=== PATIENT | female | born 1945 | race Caucasian/White ===

== ENCOUNTER 2018-11-21 11:42 | Inpatient (IN) ==
[2018-11-21] MEDS ORDERED: *HR* OxyCODONE Immed Rel 5 MG TABLET PO PRN (19:34)
[2018-11-21] MEDS ORDERED: Acetaminophen 325 MG TABLET PO PRN (19:42)
[2018-11-21] MEDS ORDERED: Ondansetron ODT 4 MG TAB.RAPDIS SL PRN (19:42)
[2018-11-21] MEDS ORDERED: Mag Hydrox/Al Hydrox/Simeth 30 ML UDC PO PRN (19:42)
[2018-11-21] MEDS: Metoprolol 100 MG TABLET PO SCH (20:11)
[2018-11-21] MEDS: Aspirin Enteric Coated 325 MG Tablet PO SCH (20:11)
[2018-11-21] MEDS: Multivit/Ca/Min/Fe/FA 1 TAB TABLET PO SCH (20:11)
[2018-11-21] MEDS ORDERED: Aspirin 81 MG TAB.CHEW PO SCH (21:00)
[2018-11-21] MEDS: *HR* OxyCODONE Immed Rel 5 MG TABLET PO PRN (22:51)
[2018-11-22] MEDS: *HR* OxyCODONE Immed Rel 5 MG TABLET PO PRN ×2 (05:32→20:03)
[2018-11-22 06:17] LABS: Basophils % 0.4 %; Eosinophils # 0.5 K/mcL (0.0-0.6); Hematocrit 28.9 % (35.3-44.9); Hemoglobin 9.4 g/dL (11.5-15.4); Immature Granulocytes % 0.4 % (0-4); Lymphocytes # 2.5 K/mcL (0.6-4.6); Lymphocytes % 27.7 %; Mean Corpuscular HGB Conc 32.5 g/dL (31.6-35.5); Mean Corpuscular Hemoglobin 30.7 pg (28.0-33.3); Mean Corpuscular Volume 94.4 fL (83.0-100.0); Mean Platelet Volume 11.5 fL (9.4-12.4); Monocytes # 1.1 K/mcL (0.0-1.3); Monocytes % 11.9 %; Neutrophils # 4.8 K/mcL (1.6-8.9); Platelet Count 246 K/mcL (140-400); Red Blood Count 3.06 M/mcL (3.82-4.97); Red Cell Distribution Width 13.7 % (11.5-14.5); Segmented Neutrophils % 53.6 %
[2018-11-22 06:26] LABS: Prothrombin Time 11.8 Seconds (9.4-12.1)
[2018-11-22 06:29] LABS: Activated Partial Thrombo Time 37.3 Seconds (26.0-36.0)
[2018-11-22 06:37] LABS: Alanine Aminotransferase 15 Units/L (7-52); Albumin 3.9 g/dL (3.5-5.7); Albumin/Globulin Ratio 1.5 (1.1-2.2); Alkaline Phosphatase 41 Units/L (34-104); Aspartate Amino Transferase 24 Units/L (13-39); BUN/Creatinine Ratio 16 (6-26); Bilirubin,Total 0.3 mg/dL (0.3-1.0); Blood Urea Nitrogen 12 mg/dL (8-23); Calcium 9.3 mg/dL (8.6-10.3); Carbon Dioxide 28 mEq/L (23-29); Chloride 104 mEq/L (98-107); Globulin 2.6 g/dL (2.4-3.5); Glucose 134 mg/dL (70-105); Osmolality,Calculated 288 (280-300); Potassium 4.3 mEq/L (3.5-5.1); Sodium 138 mEq/L (136-145); Total Protein 6.5 g/dL (6.4-8.9); eGFR For African Americans > 60 (> 60); eGFR For Non-African Americans > 60 (> 60)
[2018-11-22] MEDS: Fenofibrate 54 MG TABLET PO SCH (07:37)
[2018-11-22] MEDS: *HR* Metformin 500 MG TABLET PO SCH ×2 (07:38→17:04)
[2018-11-22] MEDS: Cholecalciferol (D-3) 1,000 UNIT (25MCG) TABLET PO SCH (07:38)
[2018-11-22] MEDS: Metoprolol 100 MG TABLET PO SCH ×2 (07:38→20:02)
[2018-11-22] MEDS: Multivit/Ca/Min/Fe/FA 1 TAB TABLET PO SCH ×2 (07:38→20:02)
[2018-11-22] MEDS: Aspirin Enteric Coated 325 MG Tablet PO SCH ×2 (07:38→20:02)
--- NOTE | 2018-11-22 11:49 | Internal Med History&Physical ---
Date of Encounter: 11/22/18 Time of Encounter: 11:47 Assessment and Plan (1) Status post total right knee replacement Current visit: Yes Status: Acute Pain controlled with current medication. PT and OT to eval and treat. Follow up with Dr. Ibarra as scheduled. (2) HTN (hypertension) Current visit: Yes Status: Chronic Controlled with current medication. Monitor blood pressure. Qualifiers: Hypertension type: unspecified Qualified Code(s): I10 - Essential (primary) hypertension (3) Hypothyroidism Current visit: Yes Status: Chronic Continue current medication. Qualifiers: Hypothyroidism type: unspecified Qualified Code(s): E03.9 - Hypothyroidism, unspecified (4) Obesity (BMI 30.0-34.9) Current visit: Yes Status: Chronic (5) Diabetes Current visit: Yes Status: Chronic Controlled with metformin. Monitor fingerstick blood sugars. Qualifiers: Diabetes mellitus type: type 2 Diabetes mellitus watermaster insulin use: unspecified chcf insulin use status Chronic kidney disease stage: unspecified stage Qualified Code(s): E11.22 - Type 2 diabetes mellitus with diabetic chronic kidney disease (6) Anxiety Current visit: Yes Status: Chronic Controlled with Xanax. Internal Medicine - H&P: HPI Admitted From: Hospital to Hospital Transfer Plans for Post Hospital Care: Home History of present illness: Ms. Bobo is a 73 year old female admitted to inpatient rehab status post r ight total knee replacement. Patient lives at home with with multiple levels of stairs in their homes. Patient had surgery on performed by Dr. Ibarra. Patient states pain is controlled with current medication this time. Denies fever, chills, nausea vomiting or diarrhea. Did have a bowel movement 2 days ago. Discussed stool softener. Maintaining appetite and hydration. at bedside at this time. Past medical history includes asthma, Gerd, hypertension, diverticulosis, anxiety, allergic rhinitis, hypothyroidism, hyperlipidemia, obesity, right knee arthritis, left knee arthritis with left total knee repair in 2014. Past Med Surg Social Fam HX - Past Medical History Medical history: asthma, diabetes, GERD, hyperlipidemia, hypertension, thyroid disease Additional medical history: Diverticulosis. Allergic Rhinitis. Hypothyroidism. Obesity. Left knee osteoathritis. Mod Dysplastic nervus. Artificial Joints. Right Knee Arthritis Psychiatric history: anxiety - Past Surgical History Surgical History: appendectomy, hysterectomy, orthopedic, other Additional surgical history: Knee Repair. Colonoscopy. Diverticulosis. Tubal Ligation. TKR. Right Knee Arthroscopy Partial Medial. Menisectomy. EGD - Social History Smoking Status: Former smoker Smokeless Tobacco Status: No Alcohol use: none Drug use: none - Family History Mother Living Status: Hx Family Cancer: Yes (throat) Father Living Status: Sister Age: 68 Family Member Ethnicity: Non- Living Status: Still Living Hx Family Cardiac Disorders: Yes Hx Family Endocrine Disorder: Yes (DM) Internal Medicine - H&P: Meds ALPRAZolam [Xanax 0.5 MG Tablet] 0.5 mg PO TID PRN 08/07/17 [History] Aspirin 81 mg PO HS 08/07/17 [History] Metoprolol Tartrate 100 mg PO BID 08/07/17 [History] Montelukast [Singulair] 10 mg PO HS 08/07/17 [History] Fenofibrate Nanocrystallized [Fenofibrate] 145 mg PO DAILY 03/27/18 [History] Rabeprazole Sodium [Aciphex] 20 mg PO DAILY 03/27/18 [History] metFORMIN [Glucophage] 500 mg PO BIDWM 03/27/18 [History] Aspirin Enteric Coated [Aspirin EC] 325 mg PO BID 10 Days #20 tablet. 11/19/18 [Rx] Calcium Carbonate/Vitamin D3 [Calcium 500 + Vit D Caplet] 1 tab PO BID 11/19/18 [History] Cholecalciferol (D-3) [Vitamin D] 2,000 unit PO DAILY 11/19/18 [History] Docusate Sodium [Colace] 100 mg PO BID 5 Days #10 capsule 11/19/18 [Rx] Losartan Potassium 25 mg PO DAILY 11/19/18 [History] Multivitamin [One Daily] 1 tab PO BID 11/19/18 [History] OxyCODONE Immed Rel [Roxicodone 5 MG] 5 mg PO Q6HR PRN 5 Days #20 tablet 11/19/18 [Rx] Potassium Chloride 10 meq PO HS 11/19/18 [History] Rosuvastatin Calcium [Crestor] 10 mg PO DAILY 11/19/18 [History] Cyclobenzaprine [Flexeril] 5 mg PO TID PRN tablet 11/21/18 [Rx] Levothyroxine [Synthroid] 112 mcg PO DAILY 11/21/18 [History] Allergy/AdvReac Type Severity Reaction Status Date / Time Benzonatate Allergy Swelling Verified 11/19/18 10:42 [From Teslenin Wright] of the Eye hydrochlorothiazide Allergy Swelling Verified 11/19/18 10:42 of the Eye atorvastatin [From Lipitor] AdvReac Flushing Verified 11/19/18 10:42 ezetimibe [From Zetia] AdvReac Itching Verified 11/19/18 10:42 All Systems PM: A 10-system review of systems was performed and is negative for pertinent findings except as documented above in the HPI. - Constitutional Vitals: Temp Pulse Resp BP Pulse Ox 98.7 F 92 16 131/79 96 11/22/18 11:00 11/22/18 11:00 11/22/18 11:00 11/22/18 11:00 11/22/18 11:00 General appearance: Present: cooperative, A&O X 3, pleasant, no acute distress, answers questions appropriately - Head Head exam: Present: atraumatic, normocephalic - Eye Eye exam: Present: PERRL, conjuntiva pink, sclera anicteric Pupils: Present: PERRL - Neck Neck exam general surgery: Present: supple, trachea midline. Absent: lymphadenopathy - Respiratory Respiratory exam: Present: CTAB. Absent: accessory muscle use, rales, rhonchi, wheezes - Cardiovascular Cardiovascular exam: Present: RRR, +S1, +S2. Absent: diastolic murmur, gallop, rubs, systolic murmur - GI/Abdominal GI/Abdominal exam: Present: normal bowel sounds, soft, no peritoneal signs. Absent: distended, tenderness - Extremities Exam Extremities exam: Present: warm, radial pulses palpable and symmetrical. Absent : calf tenderness, cyanotic, pedal edema - Incison Comments: Right knee incision dressing dry and intact with surrounding edema. No drainage or sign of infection. - Neurological Exam Neurological exam: Present: CN II-XII intact, oriented X3, no focal deficits. Absent: pronater drift, facial droop, speech deficit - Skin Skin exam: Present: dry, intact Internal Med - H&P Results - Labs CBC & Chem 7: 11/22/18 05:25 11/22/18 05:25 Labs: Short CBC 11/22/18 Range/Units 05:25 WBC 9.0 (4.3-11.1) K/mcL Hgb 9.4 L (11.5-15.4) g/dL Hct 28.9 L (35.3-44.9) % Plt Count 246 (140-400) K/mcL Neutrophils # 4.8 (1.6-8.9) K/mcL BMP 11/22/18 05:25 Sodium 138 Potassium 4.3 Chloride 104 Carbon Dioxide 28 BUN 12 Creatinine 0.76 Glucose 134 H Calcium 9.3 Liver Function 11/22/18 Range/Units 05:25 Total Bilirubin 0.3 (0.3-1.0) mg/dL AST 24 (13-39) Units/L ALT 15 (7-52) Units/L Alkaline Phosphatase 41 (34-104) Units/L Albumin 3.9 (3.5-5.7) g/dL
[2018-11-22] MEDS: ALPRAZolam 0.5 MG TABLET PO PRN (20:01)
[2018-11-23] MEDS: *HR* OxyCODONE Immed Rel 5 MG TABLET PO PRN ×3 (02:50→17:33)
[2018-11-23 05:02] LABS: Basophils # 0.1 K/mcL (0.0-0.2); Basophils % 0.7 %; Eosinophils # 0.5 K/mcL (0.0-0.6); Eosinophils % 5.9 %; Hematocrit 27.9 % (35.3-44.9); Hemoglobin 9.1 g/dL (11.5-15.4); Immature Granulocytes % 0.4 % (0-4); Lymphocytes # 2.4 K/mcL (0.6-4.6); Lymphocytes % 27.6 %; Mean Corpuscular HGB Conc 32.6 g/dL (31.6-35.5); Mean Corpuscular Hemoglobin 30.8 pg (28.0-33.3); Mean Corpuscular Volume 94.6 fL (83.0-100.0); Monocytes % 11.2 %; Neutrophils # 4.6 K/mcL (1.6-8.9); Platelet Count 232 K/mcL (140-400); Red Blood Count 2.95 M/mcL (3.82-4.97); Red Cell Distribution Width 13.7 % (11.5-14.5); Segmented Neutrophils % 54.2 %; White Blood Count 8.5 K/mcL (4.3-11.1)
[2018-11-23 05:17] LABS: BUN/Creatinine Ratio 13 (6-26); Blood Urea Nitrogen 10 mg/dL (8-23); Carbon Dioxide 28 mEq/L (23-29); Chloride 103 mEq/L (98-107); Glucose 137 mg/dL (70-105); Osmolality,Calculated 285 (280-300); Potassium 4.3 mEq/L (3.5-5.1); Sodium 137 mEq/L (136-145); eGFR For African Americans > 60 (> 60); eGFR For Non-African Americans > 60 (> 60)
[2018-11-23] MEDS: Cholecalciferol (D-3) 1,000 UNIT (25MCG) TABLET PO SCH (08:00)
[2018-11-23] MEDS: *HR* Metformin 500 MG TABLET PO SCH ×2 (08:00→17:31)
[2018-11-23] MEDS: Fenofibrate 54 MG TABLET PO SCH (08:00)
[2018-11-23] MEDS: Multivit/Ca/Min/Fe/FA 1 TAB TABLET PO SCH ×2 (08:01→21:16)
[2018-11-23] MEDS: Metoprolol 100 MG TABLET PO SCH ×2 (08:01→21:16)
[2018-11-23] MEDS: Aspirin Enteric Coated 325 MG Tablet PO SCH ×2 (08:01→21:16)
--- NOTE | 2018-11-23 10:47 | Internal Med Progress Note ---
Date of Encounter: 11/23/18 Time of Encounter: 10:45 - Assessment and plan (1) Status post total right knee replacement Current Visit: Yes Status: Acute Assessment and plan: No acute issues. Patient's complaining of moderate pain to right knee during therapy which she states is tolerable with current medications. Patient with moderate amount of edema and ecchymosis surrounding right knee midline surgical incision, which has dressing that is dry and intact. We will continue with current therapy. We will continue with icing of knee while in bed. (2) Diabetes Current Visit: Yes Status: Chronic Assessment and plan: No acute issues. Patient's fingerstick showed glucose well-controlled with most readings less than 150. We will continue with current medications. Qualifiers: Diabetes mellitus type: type 2 Diabetes mellitus senior living insulin use: unspecified termite exterminator helper insulin use status Chronic kidney disease stage: unspecified stage Qualified Code(s): E11.22 - Type 2 diabetes mellitus with diabetic chronic kidney disease (3) HTN (hypertension) Current Visit: Yes Status: Chronic Assessment and plan: No acute issues. Vital signs remained stable. We will continue with current medications. Qualifiers: Hypertension type: unspecified Qualified Code(s): I10 - Essential (primary) hypertension (4) Asthma Current Visit: No Status: Chronic Assessment and plan: No acute issues. Lungs are clear throughout. Continue with current medications. Denies any dyspnea or productive cough Qualifiers: Asthma severity: unspecified severity Asthma persistence: unspecified Asthma complication type: unspecified Qualified Code(s): J45.909 - Unspecified asthma, uncomplicated - Time Spent With Patient less than 15 minutes - Subjective Interval history: Patient appears relaxed but states she continues to have slight tenderness to her right surgical knee, which she states is at a 4/10 level of pain. Patient states that her pain is tolerable with current medications. Patient has had a right total knee replacement. Patient states that therapy is progressing well for her and denies any other issues. - Constitutional Vitals: Temp Pulse Resp BP Pulse Ox 98.4 F 100 18 129/92 93 11/23/18 07:05 11/23/18 07:05 11/23/18 07:05 11/23/18 07:05 11/23/18 07:05 General appearance: Present: cooperative, A&O X 3, pleasant, no acute distress, answers questions appropriately - Head Head exam: Present: atraumatic, normocephalic - Eye Eye exam: Present: PERRL, conjuntiva pink, sclera anicteric Pupils: Present: PERRL - Neck Neck exam general surgery: Present: supple, trachea midline. Absent: lymphadenopathy - Respiratory Respiratory exam: Present: CTAB. Absent: accessory muscle use, rales, rhonchi, wheezes - Cardiovascular Cardiovascular exam: Present: RRR, +S1, +S2. Absent: diastolic murmur, gallop, rubs, systolic murmur - GI/Abdominal GI/Abdominal exam: Present: normal bowel sounds, soft, no peritoneal signs. Absent: distended, tenderness - Extremities Exam Extremities exam: Present: warm, radial pulses palpable and symmetrical. Absent: calf tenderness, cyanotic, pedal edema Additional comments: Right knee with midline incision that appears dry and intact with dressing. Patient with moderate amount of ecchymosis noted surrounding knee which also remains moderately swollen. No erythema noted. No limits to range of motion noted. - Neurological Exam Neurological exam: Present: CN II-XII intact, oriented X3, no focal deficits. Absent: pronater drift, facial droop, speech deficit - Skin Skin exam: Present: dry, intact Internal Medicine: Result - Labs CBC & Chem 7: 11/23/18 04:45 11/23/18 04:45 Labs: Short CBC 11/23/18 Range/Units 04:45 WBC 8.5 (4.3-11.1) K/mcL Hgb 9.1 L (11.5-15.4) g/dL Hct 27.9 L (35.3-44.9) % Plt Count 232 (140-400) K/mcL Neutrophils # 4.6 (1.6-8.9) K/mcL BMP 11/23/18 04:45 Sodium 137 Potassium 4.3 Chloride 103 Carbon Dioxide 28 BUN 10 Creatinine 0.79 Glucose 137 H Calcium 9.0 - ABG Interpretation ABG results: PT/INR, D-dimer PT 11.8 Seconds (9.4-12.1) 11/22/18 05:25 Consult Discharge Plan - Plan Referrals: Darrel Ozuna MD [Primary Care Provider] -
[2018-11-24] MEDS: *HR* OxyCODONE Immed Rel 5 MG TABLET PO PRN ×3 (06:32→19:59)
[2018-11-24] MEDS: Metoprolol 100 MG TABLET PO SCH ×2 (09:17→19:56)
[2018-11-24] MEDS: Fenofibrate 54 MG TABLET PO SCH (09:18)
[2018-11-24] MEDS: *HR* Metformin 500 MG TABLET PO SCH ×2 (09:19→17:17)
[2018-11-24] MEDS: Aspirin Enteric Coated 325 MG Tablet PO SCH ×2 (09:19→19:56)
[2018-11-24] MEDS: Cholecalciferol (D-3) 1,000 UNIT (25MCG) TABLET PO SCH (09:20)
[2018-11-24] MEDS: Multivit/Ca/Min/Fe/FA 1 TAB TABLET PO SCH ×2 (09:20→19:59)
--- NOTE | 2018-11-24 11:00 | Internal Med Progress Note ---
Date of Encounter: 11/24/18 Time of Encounter: 10:57 - Assessment and plan (1) Status post total right knee replacement Current Visit: Yes Status: Acute Assessment and plan: She is doing well, stable and participating in therapy. (2) HTN (hypertension) Current Visit: Yes Status: Chronic Assessment and plan: Controlled on current regimen. Qualifiers: Hypertension type: unspecified Qualified Code(s): I10 - Essential (primary) hypertension (3) Diabetes Current Visit: Yes Status: Chronic Assessment and plan: We will continue current regimen and sliding scale. Qualifiers: Diabetes mellitus type: type 2 Diabetes mellitus intermodal customer service insulin use: unspecified intermodal customer service insulin use status Chronic kidney disease stage: unspecified stage Qualified Code(s): E11.22 - Type 2 diabetes mellitus with diabetic chronic kidney disease (4) Asthma Current Visit: No Status: Chronic Assessment and plan: No current signs or symptoms. Qualifiers: Asthma severity: unspecified severity Asthma persistence: unspecified Asthma complication type: unspecified Qualified Code(s): J45.909 - Unspecified asthma, uncomplicated (5) Acute blood loss anemia Current Visit: No Status: Acute Assessment and plan: Stable and well tolerated although she has mild tachycardia. Will follow. (6) Hypothyroidism Current Visit: Yes Status: Chronic Assessment and plan: Clinically euthyroid. Qualifiers: Hypothyroidism type: unspecified Qualified Code(s): E03.9 - Hypothyroidism, unspecified - Subjective Interval history: Patient is without complaint. She states slept poorly last night but is feeling rested after a brief time in bed. Her knee pain is improving. She still has not had a bowel movement and has been taking laxatives and prune juice. We discussed the use of magnesium citrate, this evening, if no bowel movement by then. Patient has no complaint of chest discomfort, dyspnea, orthopnea, palpitations, nausea or vomiting, constipation or diarrhea, other changes in bowel habits, di fficulty with urination, rash or itching, or other new complaints, except as mentioned above. Review of systems is otherwise negative. I discussed management of patient's care with nursing staff. - Constitutional Vitals: Temp Pulse Resp BP Pulse Ox 98.4 F 104 18 121/73 97 11/24/18 08:00 11/24/18 08:00 11/24/18 08:00 11/24/18 08:00 11/24/18 08:00 Exam: Examination: (Except as mentioned above): General: In no apparent distress. Alert and oriented 3. Nondiaphoretic. Head: Atraumatic and normocephalic. Respiratory: No use of accessory muscles. Lungs are clear throughout. Normal airflow. Cardiovascular: Regular rate and rhythm without murmur appreciated. Abdomen: Bowel sounds are normal. No hepatosplenomegaly mass or tenderness appreciated. Obese and therefore difficult to palpate deeply. Extremities: No cyanosis clubbing or edema. Skin: Warm and non-diaphoretic with no new lesions noted. Internal Medicine: Result - Labs CBC & Chem 7: 11/23/18 04:45 11/23/18 04:45 - ABG Interpretation ABG results: PT/INR, D-dimer PT 11.8 Seconds (9.4-12.1) 11/22/18 05:25 Consult Discharge Plan - Plan Referrals: Darrel Ozuna MD [Primary Care Provider] -
[2018-11-24] MEDS: Sennosides 8.6 MG TABLET PO SCH (19:58)
[2018-11-25] MEDS: *HR* OxyCODONE Immed Rel 5 MG TABLET PO PRN ×3 (05:33→21:05)
[2018-11-25] MEDS: Fenofibrate 54 MG TABLET PO SCH (08:31)
[2018-11-25] MEDS: Sennosides 8.6 MG TABLET PO SCH ×2 (08:32→21:05)
[2018-11-25] MEDS: Metoprolol 100 MG TABLET PO SCH ×2 (08:32→21:05)
[2018-11-25] MEDS: Cholecalciferol (D-3) 1,000 UNIT (25MCG) TABLET PO SCH (08:32)
[2018-11-25] MEDS: Multivit/Ca/Min/Fe/FA 1 TAB TABLET PO SCH ×2 (08:32→21:04)
[2018-11-25] MEDS: *HR* Metformin 500 MG TABLET PO SCH ×2 (08:32→16:36)
[2018-11-25] MEDS: Aspirin Enteric Coated 325 MG Tablet PO SCH (08:32)
--- NOTE | 2018-11-25 15:58 | Internal Med Progress Note ---
Date of Encounter: 11/25/18 Time of Encounter: 15:56 - Assessment and plan (1) Status post total right knee replacement Current Visit: Yes Status: Acute Assessment and plan: She is doing well, stable and participating in therapy. See comments under subjective regarding DVT prophylaxis change. (2) HTN (hypertension) Current Visit: Yes Status: Chronic Assessment and plan: Controlled. Qualifiers: Hypertension type: unspecified Qualified Code(s): I10 - Essential (primary) hypertension (3) Diabetes Current Visit: Yes Status: Chronic Assessment and plan: Adequate control. We will continue sliding scale and current regimen. Qualifiers: Diabetes mellitus type: type 2 Diabetes mellitus terminal carman insulin use: unspecified terminal carman insulin use status Chronic kidney disease stage: unspecified stage Qualified Code(s): E11.22 - Type 2 diabetes mellitus with diabetic chronic kidney disease (4) Asthma Current Visit: No Status: Chronic Assessment and plan: No current findings. Qualifiers: Asthma severity: unspecified severity Asthma persistence: unspecified Asthma complication type: unspecified Qualified Code(s): J45.909 - Unspecified asthma, uncomplicated (5) Acute blood loss anemia Current Visit: No Status: Acute Assessment and plan: Stable but will recheck blood tomorrow. (6) Hypothyroidism Current Visit: Yes Status: Chronic Assessment and plan: Clinically euthyroid. Qualifiers: Hypothyroidism type: unspecified Qualified Code(s): E03.9 - Hypothyroidism, unspecified - Subjective Interval history: Patient is without complaint. On specific questioning, she admits to dyspepsia and feels this is related to her aspirin. She prefer "shots" to the aspirin. We discussed this and will begin Lovenox, as a day. Aspirin will be discontinued. She had a bowel movement but still feels slightly constipated. Patient has no complaint of chest discomfort, dyspnea, orthopnea, palpitations, nausea or vomiting, constipation or diarrhea, other changes in bowel habits, difficulty with urination, rash or itching, or other new complaints, except as mentioned above. Review of systems is otherwise negative. I discussed management of patient's care with nursing staff. - Constitutional Vitals: Temp Pulse Resp BP Pulse Ox 97.7 F 105 18 136/65 95 11/25/18 07:25 11/25/18 07:25 11/25/18 07:25 11/25/18 07:25 11/25/18 07:25 Exam: Examination: (Except as mentioned above): General: In no apparent distress. Alert and oriented 3. Nondiaphoretic. Head: Atraumatic and normocephalic. Respiratory: No use of accessory muscles. Lungs are clear throughout. Normal airflow. Cardiovascular: Regular rate and rhythm without murmur appreciated. Abdomen: Bowel sounds are normal. No hepatosplenomegaly mass or tenderness appreciated. Obese and therefore difficult to palpate deeply. Extremities: No cyanosis clubbing or edema. Skin: Warm and non-diaphoretic with no new lesions noted. Internal Medicine: Result - Labs CBC & Chem 7: 11/23/18 04:45 11/23/18 04:45 - ABG Interpretation ABG results: PT/INR, D-dimer PT 11.8 Seconds (9.4-12.1) 11/22/18 05:25 Consult Discharge Plan - Plan Referrals: Darrel Ozuna MD [Primary Care Provider] -
[2018-11-25] MEDS ORDERED: *HR* Enoxaparin 40 MG/0.4 ML SYRINGE SQ SCH (16:30)
[2018-11-25] MEDS: ALPRAZolam 0.5 MG TABLET PO PRN (21:04)
[2018-11-26] MEDS: *HR* OxyCODONE Immed Rel 5 MG TABLET PO PRN ×2 (05:36→10:27)
[2018-11-26 06:47] LABS: Basophils % 0.5 %; Eosinophils # 0.4 K/mcL (0.0-0.6); Eosinophils % 6.8 %; Hematocrit 27.5 % (35.3-44.9); Hemoglobin 9.1 g/dL (11.5-15.4); Immature Granulocytes % 0.3 % (0-4); Lymphocytes % 31.1 %; Mean Corpuscular HGB Conc 33.1 g/dL (31.6-35.5); Mean Corpuscular Hemoglobin 31.8 pg (28.0-33.3); Mean Corpuscular Volume 96.2 fL (83.0-100.0); Mean Platelet Volume 10.4 fL (9.4-12.4); Monocytes # 0.9 K/mcL (0.0-1.3); Monocytes % 13.9 %; Neutrophils # 3.1 K/mcL (1.6-8.9); Platelet Count 331 K/mcL (140-400); Red Blood Count 2.86 M/mcL (3.82-4.97); Red Cell Distribution Width 13.6 % (11.5-14.5); Segmented Neutrophils % 47.4 %; White Blood Count 6.5 K/mcL (4.3-11.1)
[2018-11-26 06:55] VITALS: BP 98/66
[2018-11-26 07:05] LABS: BUN/Creatinine Ratio 16 (6-26); Blood Urea Nitrogen 13 mg/dL (8-23); Calcium 8.9 mg/dL (8.6-10.3); Carbon Dioxide 28 mEq/L (23-29); Chloride 99 mEq/L (98-107); Glucose 124 mg/dL (70-105); Osmolality,Calculated 278 (280-300); Potassium 4.3 mEq/L (3.5-5.1); Sodium 133 mEq/L (136-145); eGFR For African Americans > 60 (> 60); eGFR For Non-African Americans > 60 (> 60)
[2018-11-26] MEDS: *HR* Metformin 500 MG TABLET PO SCH (08:52)
[2018-11-26] MEDS: Fenofibrate 54 MG TABLET PO SCH (08:52)
[2018-11-26] MEDS: Sennosides 8.6 MG TABLET PO SCH (08:52)
[2018-11-26] MEDS: Metoprolol 100 MG TABLET PO SCH (08:52)
[2018-11-26] MEDS: Cholecalciferol (D-3) 1,000 UNIT (25MCG) TABLET PO SCH (08:52)
[2018-11-26] MEDS: Multivit/Ca/Min/Fe/FA 1 TAB TABLET PO SCH (08:52)
--- NOTE | 2018-11-26 09:41 | Discharge Summary ---
Date of Encounter: 11/26/18 Time of Encounter: 09:39 - Discharge Diagnosis (1) Status post total right knee replacement Priority: Primary Status: Acute Comments: Goals completed with PT and OT. Discharging to home. Able to ambulate by self with Walker and climb stairs. Pain controlled with current medication. Follow up with surgeon as scheduled. (2) HTN (hypertension) Priority: Secondary Status: Chronic Comments: Controlled with current medication. Monitor BP. Follow up with PCP. Qualifiers: Hypertension type: unspecified Qualified Code(s): I10 - Essential (primary) hypertension (3) Hypothyroidism Priority: Secondary Status: Chronic Comments: Continue current medication. Follow up with PCP. Qualifiers: Hypothyroidism type: unspecified Qualified Code(s): E03.9 - Hypothyroidism, unspecified (4) Obesity (BMI 30.0-34.9) Priority: Secondary Status: Chronic Comments: Monitor diet. (5) Diabetes Priority: Secondary Status: Chronic Comments: Controlled with current medication. Follow up with PCP. Qualifiers: Diabetes mellitus type: type 2 Diabetes mellitus skilled nursing insulin use: unspecified skilled nursing insulin use status Chronic kidney disease stage: unspecified stage Qualified Code(s): E11.22 - Type 2 diabetes mellitus with diabetic chronic kidney disease (6) Anxiety Priority: Secondary Status: Chronic Comments: sTable. Continue current medication. Follow up with PCP. Hospital course: Ms. Bobo is a 73 year old female discharging to home with status post right total knee replacement. Patient completed PT and OT goals. Ambulates with Walker independently. Patient states pain is controlled with current medication. Instructed to follow up with PCP within one to 2 weeks and surgeon as scheduled. Patient denies any complaints or concerns. Denies fever, chills, nausea vomiting or diarrhea. Denies shortness of breath or chest pain. Last bowel movement was yesterday. Discharge discussed with: patient, family, nurse, social work - Time Spent with Patient Total time spent providing and/or coordinating discharge services: - Discharge Medications Prescriptions: No Action Montelukast [Singulair] 10 mg PO HS ALPRAZolam [Xanax 0.5 MG Tablet] 0.5 mg PO TID PRN PRN Reason: Anxiety Metoprolol Tartrate 100 mg PO BID Aspirin 81 mg PO HS metFORMIN [Glucophage] 500 mg PO BIDWM Rabeprazole Sodium [Aciphex] 20 mg PO DAILY Fenofibrate Nanocrystallized [Fenofibrate] 145 mg PO DAILY Docusate Sodium [Colace] 100 mg PO BID 5 Days #10 capsule OxyCODONE Immed Rel [Roxicodone 5 MG] 5 mg PO Q6HR PRN 5 Days #20 tablet PRN Reason: Severe Pain Aspirin Enteric Coated [Aspirin EC] 325 mg PO BID 10 Days #20 tablet. Calcium Carbonate/Vitamin D3 [Calcium 500 + Vit D Caplet] 1 tab PO BID Cholecalciferol (D-3) [Vitamin D] 2,000 unit PO DAILY Losartan Potassium 25 mg PO DAILY Multivitamin [One Daily] 1 tab PO BID Potassium Chloride 10 meq PO HS Rosuvastatin Calcium [Crestor] 10 mg PO DAILY Levothyroxine [Synthroid] 112 mcg PO DAILY Cyclobenzaprine [Flexeril] 5 mg PO TID PRN tablet PRN Reason: MUSCLE SPASM Home Medications: ALPRAZolam [Xanax 0.5 MG Tablet] 0.5 mg PO TID PRN 08/07/17 [History] Metoprolol Tartrate 100 mg PO BID 08/07/17 [History] Montelukast [Singulair] 10 mg PO HS 08/07/17 [History] Fenofibrate Nanocrystallized [Fenofibrate] 145 mg PO DAILY 03/27/18 [History] Rabeprazole Sodium [Aciphex] 20 mg PO DAILY 03/27/18 [History] metFORMIN [Glucophage] 500 mg PO BIDWM 03/27/18 [History] Aspirin Enteric Coated [Aspirin EC] 325 mg PO BID 10 Days #20 tablet. 11/19/18 [Rx] Calcium Carbonate/Vitamin D3 [Calcium 500 + Vit D Caplet] 1 tab PO BID 11/19/18 [History] Cholecalciferol (D-3) [Vitamin D] 2,000 unit PO DAILY 11/19/18 [History] Docusate Sodium [Colace] 100 mg PO BID 5 Days #10 capsule 11/19/18 [Rx] Losartan Potassium 25 mg PO DAILY 11/19/18 [History] Multivitamin [One Daily] 1 tab PO BID 11/19/18 [History] OxyCODONE Immed Rel [Roxicodone 5 MG] 5 mg PO Q6HR PRN 5 Days #20 tablet 11/19/18 [Rx] Potassium Chloride 10 meq PO HS 11/19/18 [History] Rosuvastatin Calcium [Crestor] 10 mg PO DAILY 11/19/18 [History] Cyclobenzaprine [Flexeril] 5 mg PO TID PRN tablet 11/21/18 [Rx] Levothyroxine [Synthroid] 112 mcg PO DAILY 11/21/18 [History] Acetaminophen [Tylenol] 650 mg PO Q6HR PRN tablet 11/26/18 [Rx] Allergies/Adverse Reactions: Allergy/AdvReac Type Severity Reaction Status Date / Time Benzonatate Allergy Swelling Verified 11/19/18 10:42 [From Tessalkatie Wright] of the Eye hydrochlorothiazide Allergy Swelling Verified 11/19/18 10:42 of the Eye atorvastatin [From Lipitor] AdvReac Flushing Verified 11/19/18 10:42 ezetimibe [From Zetia] AdvReac Itching Verified 11/19/18 10:42 Date of admission: 11/21/18 17:34 Primary care physician: Darrel Ozuna MD Consults: 11/21/18 19:37 Consult to Occupational Therapy [CONS] Routine Comment: Evaluate, develop and implement POC Reason for Consult: s/p knee replacement Does patient have active BEDREST order?: No Is patient medically & hemodynamically stable?: Yes Patient assessed for mobility or mobilized this visit?: No Consult to Physical Therapy [CONS] Routine Comment: Evaluate, develop and implement POC Reason for Consult: s/p knee replacement, per orders, focus on extension Does patient have active BEDREST order?: No Is patient medically & hemodynamically stable?: Yes Patient assessed for mobility or mobilized this visit?: No Consult to Recreational Therapy [CONS] Routine Comment: Evaluate, develop and implement POC Consult to Manager Baby [CONS] Routine Reason for SW Consult: d/c planning Discharging clinician: Dorian Retana Anticipated date of discharge: 11/26/18 - Constitutional Vitals: Temp Pulse Resp BP Pulse Ox 97.9 F 100 18 98/66 95 11/26/18 06:54 11/26/18 06:54 11/26/18 06:54 11/26/18 06:54 11/26/18 06:54 General appearance: Present: cooperative, A&O X 3, pleasant, no acute distress, answers questions appropriately - Head Head exam: Present: atraumatic, normocephalic - Eye Eye exam: Present: PERRL, conjuntiva pink, sclera anicteric Pupils: Present: PERRL - Neck Neck exam general surgery: Present: supple, trachea midline. Absent: lymphadenopathy - Respiratory Respiratory exam: Present: CTAB. Absent: accessory muscle use, rales, rhonchi, wheezes - Cardiovascular Cardiovascular exam: Present: RRR, +S1, +S2. Absent: diastolic murmur, gallop, rubs, systolic murmur - GI/Abdominal GI/Abdominal exam: Present: normal bowel sounds, soft, no peritoneal signs. Absent: distended, tenderness - Extremities Exam Extremities exam: Present: warm, radial pulses palpable and symmetrical. Absent: calf tenderness, cyanotic, pedal edema Additional comments: Right knee incision dressing dry and intact with moderate amount of edema surr ounding. - Neurological Exam Neurological exam: Present: CN II-XII intact, oriented X3, no focal deficits. Absent: pronater drift, facial droop, speech deficit - Skin Skin exam: Present: dry, intact - Patient Status Disposition: Home, Self-Care Condition: Good Functional capacity at discharge: uses cane/walker Overall status at discharge: patient is progressing back to baseline - Discharge Instructions Follow Up With: Darrel Ozuna MD [Primary Care Provider] - - Diet and Activity Activity: as per physical therapy Diet: diabetic diet
== END 2018-11-26 11:55 | disposition home or self-care (01) | DRG 560 ==
LOC: INPGRE 17:34